=== PATIENT | male | born 1970 | race African-American/Black ===

== ENCOUNTER 2016-03-31 14:30 | Emergency (ER) | payer MEDICAID, OTHER ==
[~2016-03-31] VITALS: Ht 167.6 cm; Wt 145.1 kg
[2016-03-31 15:46] LABS: Basophils # (auto) 0.1 uL; Basophils % (auto) 0.7 % (0.0-2.0); Eosinophils # (auto) 0.5 uL; Eosinophils % (auto) 4.6 % (0.0-7.0); Hematocrit 45.8 % (41.0-53.0); Hemoglobin 14.6 g/dL (13.5-17.5); Lymphocytes # (auto) 3.2 uL; Lymphocytes % (auto) 30.9 % (10.0-50.0); Mean Corpuscular Hemoglobin 28.1 pg (28.0-32.0); Mean Corpuscular Hgb Conc. 31.8 g/dL (32.0-36.0); Mean Corpuscular Volume 88.3 fL (80.0-100.0); Mean Platelet Volume 7.6 fL (7.4-10.4); Monocytes # (auto) 0.8 uL; Monocytes % (auto) 7.7 % (0.0-12.0); Neutrophils # (auto) 5.7 uL; Neutrophils % (auto) 56.1 % (37.0-80.0); Platelet Count (auto) 421 10^3/uL (140-450); Red Cell Distribution Width 13.3 % (11.6-16.0); White Blood Cell 10.2 10^3/uL (4.4-10.8)
[2016-03-31 16:05] LABS: BUN/Creatinine Ratio 12.2; Calcium 9.9 mg/dL (8.5-10.1); Magnesium 2.2 mg/dL (1.6-2.6); Potassium 4.4 mmol/L (3.5-5.1)
[2016-03-31] MEDS ORDERED: HYDROcodone-ACET 10/325MG TAB PO ONE (18:00)
[2016-03-31 19:27] VITALS: BP 132/76
== END 2016-03-31 19:29 | disposition home or self-care (01) ==
LOC: ER 14:38
DX: J01.90 Acute sinusitis, unspecified (principal); R51 Headache; R07.89 Other chest pain; I10 Essential (primary) hypertension; J40 Bronchitis, not specified as acute or chronic; F17.210 Nicotine dependence, cigarettes, uncomplicated; Z98.890 Other specified postprocedural states; Z88.6 Allergy status to analgesic agent
CPT/HCPCS: 36415; 70450; 71020; 80048; 83735; 84484; 85025; 93005

== ENCOUNTER 2018-10-11 11:03 | Emergency (ER) | payer MEDICAID ==
[~2018-10-11] VITALS: Ht 167.6 cm; Wt 127.0 kg
[2018-10-11 13:23] VITALS: BP 144/84
== END 2018-10-11 14:12 | disposition home or self-care (01) ==
LOC: ER 11:03
DX: J02.9 Acute pharyngitis, unspecified (principal); R42 Dizziness and giddiness; R51 Headache; I10 Essential (primary) hypertension; E78.00 Pure hypercholesterolemia, unspecified; E66.01 Morbid (severe) obesity due to excess calories; Z68.42 Body mass index [BMI] 45.0-49.9, adult; E78.5 Hyperlipidemia, unspecified; F17.210 Nicotine dependence, cigarettes, uncomplicated
CPT/HCPCS: 71046; 93005